=== PATIENT | female | born 1945 | race Caucasian/White ===

== ENCOUNTER 2019-04-04 15:48 | Observation (INO) | payer OTHER ==
[2019-04-04] MEDS ORDERED: NA CHLORIDE 0.9% 1,000 ML ONE (16:39)
[2019-04-04 17:06] LABS: Absolute Lymphocytes (CBC) 1.3 K/uL (0.7-4.9); Basophils % 0.8 % (0-1.3); Hematocrit 28.7 % (36.0-45.0); Lymphocytes % 19.5 % (15.3-44.8); MPV 8.8 fL (7.6-11.3)
[2019-04-04 17:17] LABS: Protime INR 2.87
[2019-04-04 17:29] LABS: Albumin 3.3 g/dL (3.4-5.0); Bilirubin Total 0.3 mg/dL (0.2-1.0); Protein, Total 5.7 g/dL (6.4-8.2)
--- NOTE | 2019-04-04 18:45 | ER ---
Nurse's Notes [facility] Name: Ruby Wright Age: 73 yrs Sex: Female : 1945 Arrival Date: 04/04/2019 Time: 15:50 Bed 30 Private MD: Moose Castillo Diagnosis: Gastrointestinal hemorrhage, unspecified Presentation: 04/04 16:10 Presenting complaint: Patient states: blood in stool since yesterday, denies pain, c/o iw nausea , currently on warfarin, increased dose 2 weeks ago. Transition of care: patient was not received from another setting of care. Onset of symptoms was April 04, 2019. Risk Assessment: Do you want to hurt yourself or someone else? Patient reports no desire to harm self or others. Initial Sepsis Screen: Does the patient meet any 2 criteria? No. Patient's initial sepsis screen is negative. Does the patient have a suspected source of infection? No. Patient's initial sepsis screen is negative. Care prior to arrival: None. 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 - Social history:: Smoking status: Patient/guardian denies using tobacco. - Ebola Screening: : Patient negative for fever greater than or equal to 101.5 degrees Fahrenheit, and additional compatible Ebola Virus Disease symptoms Patient denies exposure to infectious person Patient denies travel to an Ebola-affected area in the 21 days before illness onset No symptoms or risks identified at this time. Screenin:10 Abuse screen: Denies threats or abuse. Nutritional screening: No deficits noted. tr5 Tuberculosis screening: No symptoms or risk factors identified. Fall Risk None identified. Assessment: 16:40 General: Appears in no apparent distress. Behavior is calm, cooperative. tr5 16:40 Pain: Denies pain. Neuro: Level of Consciousness is awake, alert, obeys commands, tr5 Oriented to person, place, time, Hairspring [employer]i Inspector are equal bilaterally Moves all extremities. Cardiovascular: Heart tones present Capillary refill < 3 seconds Pulses are all present. Edema is absent. Respiratory: Airway is patent Respiratory effort is even, unlabored, Respiratory pattern is regular, symmetrical. GI: Reports bloody stool. : No signs and/or symptoms were reported regarding the genitourinary system. EENT: No signs and/or symptoms were reported regarding the EENT system. Derm: No signs and/or symptoms reported regarding the dermatologic system. Musculoskeletal: Capillary refill < 3 seconds, Range of motion: intact in all extremities. 18:00 Reassessment: Patient appears in no apparent distress at this time. Patient and/or tr5 family updated on plan of care and expected duration. Pain level reassessed. Patient is alert, oriented x 3, equal unlabored respirations, skin warm/dry/pink. 19:00 Reassessment: Patient appears in no apparent distress at this time. Patient and/or tr5 family updated on plan of care and expected duration. Pain level reassessed. Patient is alert, oriented x 3, equal unlabored respirations, skin warm/dry/pink. 20:00 Reassessment: Patient appears in no apparent distress at this time. Patient and/or tr5 family updated on plan of care and expected duration. Pain level reassessed. Patient is alert, oriented x 3, equal unlabored respirations, skin warm/dry/pink. Vital Signs: 16:14 BP 155 / 83; Pulse 73; Resp 16 S; Temp 98.5(O); Pulse Ox 97% on R/A; Weight 74.84 kg; iw Height 5 ft. 9 in. (175.26 cm); Pain 0/10; 16:40 BP 190 / 69; Pulse 59; Resp 16; Pulse Ox 99% on R/A; tr5 18:00 BP 190 / 69; Pulse 60; Resp 16; Pulse Ox 99% on R/A; tr5 19:00 BP 180 / 90; Pulse 63; Resp 15; Pulse Ox 99% on R/A; tr5 20:00 BP 172 / 78; Pulse 60; Resp 17; Pulse Ox 97% on R/A; tr5 16:14 Body Mass Index 24.37 (74.84 kg, 175.26 cm) iw ED Course: 15:50 Patient arrived in ED. as 15:51 Moose Castillo MD is Private Physician. as 15:59 Eddie Maddox, MICHAEL is Primary Nurse. tr5 16:01 Simon Becerra MD is Attending Physician. gs 16:10 Call light in reach. Side rails up X 1. Adult w/ patient. tr5 16:13 Triage completed. iw 16:14 Arm band placed on. iw 16:45 Inserted saline lock: 22 gauge in right antecubital area, using aseptic technique. tr5 16:50 Initial lab(s) drawn, by ky, sent to lab. tr5 18:43 Moose Castillo MD is Hospitalizing Provider. gs 19:00 Awaiting bed assignment. tr5 20:20 transfer transportation to receiving facility. tr5 20:47 No provider procedures requiring assistance completed. Patient admitted, IV remains in tr5 place. Administered Medications: 17:00 Drug: NS 0.9% 1000 ml Route: IV; Rate: 125 ml/hr; Site: right antecubital; tr5 20:50 Follow up: IV Status: Infusion continued upon transfer tr5 Outcome: 18:43 Decision to Hospitalize by Provider. gs 20:20 Admitted to Med/surg accompanied by tech, via wheelchair, with chart, Report called to tr5 Viral RODRIGUEZ 20:20 Condition: stable 20:20 Instructed on the need for admit. 21:09 Patient left the ED. tr5 Signatures: Oksana Do Irene, RN RN Simon Becerra MD MD Eddie Maddox RN RN tr5 Corrections: (The following items were deleted from the chart) 18:16 17:00 General: Appears tr5 tr5
--- NOTE | 2019-04-04 18:45 | EDPHYS ---
Physician Documentation [facility] Name: Ruby Wright Age: 73 yrs Sex: Female : 1945 Arrival Date: 04/04/2019 Time: 15:50 Bed 30 Private MD: Moose Castillo ED Physician Simon Becerra HPI: 04/04 18:22 This 73 yrs old Female presents to ER via Ambulatory with complaints of gs Bloody Stools. 18:22 The patient presents to the emergency department with rectal bleeding, a small amount, gs dark red blood with bowel movement. Onset: The symptoms/episode began/occurred today. Abdominal pain: none is appreciated. Modifying factors: The symptoms are alleviated by nothing, the symptoms are aggravated by nothing. Associated signs and symptoms: Pertinent negatives: chest pain, constipation, dizziness at rest, dizziness when standing. Severity of symptoms: At their worst the symptoms were moderate in the emergency department the symptoms have improved mildly. The patient has experienced a previous episode, and the symptoms today are exactly the same. 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 - Social history:: Smoking status: Patient/guardian denies using tobacco. - Ebola Screening: : Patient negative for fever greater than or equal to 101.5 degrees Fahrenheit, and additional compatible Ebola Virus Disease symptoms Patient denies exposure to infectious person Patient denies travel to an Ebola-affected area in the 21 days before illness onset No symptoms or risks identified at this time. ROS: 18:22 All other systems are negative. gs Exam: 18:22 Head/Face: Normocephalic, atraumatic. Eyes: Pupils equal round and reactive to light, gs extra-ocular motions intact. Lids and lashes normal. Conjunctiva and sclera are non-icteric and not injected. Cornea within normal limits. Periorbital areas with no swelling, redness, or edema. ENT: Nares patent. No nasal discharge, no septal abnormalities noted. Tympanic membranes are normal and external auditory canals are clear. Oropharynx with no redness, swelling, or masses, exudates, or evidence of obstruction, uvula midline. Mucous membranes moist. Neck: Trachea midline, no thyromegaly or masses palpated, and no cervical lymphadenopathy. Supple, full range of motion without nuchal rigidity, or vertebral point tenderness. No Meningismus. Chest/axilla: Normal chest wall appearance and motion. Nontender with no deformity. No lesions are appreciated. Cardiovascular: Regular rate and rhythm with a normal S1 and S2. No gallops, murmurs, or rubs. Normal PMI, no JVD. No pulse deficits. Respiratory: Lungs have equal breath sounds bilaterally, clear to auscultation and percussion. No rales, rhonchi or wheezes noted. No increased work of breathing, no retractions or nasal flaring. Back: No spinal tenderness. No costovertebral tenderness. Full range of motion. Skin: Warm, dry with normal turgor. Normal color with no rashes, no lesions, and no evidence of cellulitis. MS/ Extremity: Pulses equal, no cyanosis. Neurovascular intact. Full, normal range of motion. Neuro: Awake and alert, GCS 15, oriented to person, place, time, and situation. Cranial nerves II-XII grossly intact. Motor strength 5/5 in all extremities. Sensory grossly intact. Cerebellar exam normal. Normal gait. 18:22 Constitutional: The patient appears alert, awake. 18:22 Abdomen/GI: Palpation: abdomen is soft and non-tender, in all quadrants, Rectal exam: Stool: 18:22 Abdomen/GI: Rectal exam: Stool: grossly bloody. gs Vital Signs: 16:14 BP 155 / 83; Pulse 73; Resp 16 S; Temp 98.5(O); Pulse Ox 97% on R/A; Weight 74.84 kg; iw Height 5 ft. 9 in. (175.26 cm); Pain 0/10; 16:40 BP 190 / 69; Pulse 59; Resp 16; Pulse Ox 99% on R/A; tr5 18:00 BP 190 / 69; Pulse 60; Resp 16; Pulse Ox 99% on R/A; tr5 19:00 BP 180 / 90; Pulse 63; Resp 15; Pulse Ox 99% on R/A; tr5 20:00 BP 172 / 78; Pulse 60; Resp 17; Pulse Ox 97% on R/A; tr5 16:14 Body Mass Index 24.37 (74.84 kg, 175.26 cm) iw MDM: 16:34 Patient medically screened. 18:22 Differential diagnosis: DIVERTICULOSIS, COAGULOPATHY. Data reviewed: vital signs, gs nurses notes. Counseling: I had a detailed discussion with the patient and/or guardian regarding: the historical points, exam findings, and any diagnostic results supporting the discharge/admit diagnosis, the need for further work-up and treatment in the hospital. Response to treatment: the patient's symptoms have markedly improved after treatment. ED course: DR NESS GOMEZ SAYS COMFORTABLE WITH NO GI COVERAGE. 04/04 16:35 Order name: CBC with Diff; Complete Time: 17:34 04/04 16:35 Order name: CMP; Complete Time: 17:34 04/04 16:35 Order name: PT-INR; Complete Time: 17:34 04/04 17:38 Order name: Type And Screen 04/04 19:07 Order name: Protime (+INR) EDOK 04/04 19:09 Order name: CBC with Automated Diff [facility] 04/04 19:09 Order name: Clear Liquid EDOK 04/04 19:09 Order name: CBC with Automated Diff EDOK 04/04 19:09 Order name: CBC with Automated Diff EDOK 04/04 19:09 Order name: CBC with Automated Diff EDMS Administered Medications: 17:00 Drug: NS 0.9% 1000 ml Route: IV; Rate: 125 ml/hr; Site: right antecubital; tr5 20:50 Follow up: IV Status: Infusion continued upon transfer tr5 Disposition: 04/04/19 18:43 Hospitalization ordered by Moose Castillo for Observation. Preliminary diagnosis is Gastrointestinal hemorrhage, unspecified. - Bed requested for Telemetry/MedSurg (observation). - Status is Observation. tr5 - Condition is Stable. - Problem is new. - Symptoms have improved. UTI on Admission? No Signatures: Dispatcher [employer] EDOK Emily Wilson RN RN mw Williams, Irene, RN RN Simon Becerra MD MD Eddie Maddox RN RN tr5 Corrections: (The following items were deleted from the chart) 18:44 18:22 Abdomen/GI: Palpation: abdomen is soft and non-tender, in all quadrants, Rectal gs exam: Stool: guaiac positive, gs 19:28 18:43 Hospitalization Ordered by Moose Castillo MD for Observation. Preliminary mw diagnosis is Gastrointestinal hemorrhage, unspecified. Bed requested for Telemetry/MedSurg (observation). Status is Observation. Condition is Stable. Problem is new. Symptoms have improved. UTI on Admission? No. gs 21:09 19:28 04/04/2019 18:43 Hospitalization Ordered by Moose Castillo MD for Observation. tr5 Preliminary diagnosis is Gastrointestinal hemorrhage, unspecified. Bed requested for Telemetry/MedSurg (observation). Status is Observation. Condition is Stable. Problem is new. Symptoms have improved. UTI on Admission? No. mw
[2019-04-04] MEDS: NA CHLORIDE 0.9% 1,000 ML IV SCH (19:00)
[2019-04-04 21:24] VITALS: BMI 23.1
[2019-04-04] MEDS ORDERED: PANTOPRAZOLE 40 MG INJ IVP ONE (22:27)
[2019-04-04] MEDS ORDERED: SODIUM CHLORIDE 0.9% 10ML INJ IV PRN (22:27)
[2019-04-04] MEDS ORDERED: TEMAZEPAM 15 MG CAP PO PRN (22:28)
[2019-04-04] MEDS ORDERED: CALCIUM CARBONATE CHEW 500MG TAB PO ONE (22:49)
[2019-04-05 01:51] LABS: Absolute Lymphocytes (CBC) 1.2 K/uL (0.7-4.9); Basophils % 0.7 % (0-1.3); Hematocrit 24.9 % (36.0-45.0); MPV 8.9 fL (7.6-11.3); RBC Red Blood Cell Count 3.06 M/uL (3.86-4.86)
[2019-04-05 03:14] VITALS: O2SAT 98
[2019-04-05 04:41] LABS: Urine Appearance CLEAR; Urine Bilirubin NEGATIVE (NEG); Urine Blood NEGATIVE (NEG); Urine Color YELLOW; Urine Glucose NEGATIVE (NEG); Urine Microscopic Reflex ORDER UMIC; Urine Protein NEGATIVE (NEG); Urine Urobilinogen 0.2 mg/dL (0.2-1.0)
[2019-04-05] MEDS: NA CHLORIDE 0.9% 1,000 ML IV SCH (05:00)
[2019-04-05 05:21] LABS: Urine Bacteria >50 /HPF (<20); Urine Culture Reflex Order REFLEXED; Urine RBC NONE SEEN /HPF (NONE SEEN)
[2019-04-05] MEDS ORDERED: cloNIDine HCl 0.1 MG TAB PO ONE (06:16)
[2019-04-05 07:10] LABS: RBC Red Blood Cell Count 3.16 M/uL (3.86-4.86)
[2019-04-05 07:11] LABS: Absolute Lymphocytes (CBC) 1.2 K/uL (0.7-4.9); Basophils % 1.1 % (0-1.3); Hematocrit 25.9 % (36.0-45.0); Lymphocytes % 21.2 % (15.3-44.8); MPV 9.4 fL (7.6-11.3)
[2019-04-05 07:12] LABS: Protime INR 2.71
[2019-04-05 07:28] LABS: Albumin 2.7 g/dL (3.4-5.0); Bilirubin Total 0.4 mg/dL (0.2-1.0); Potassium 4.2 mmol/L (3.5-5.1); Thyroid Stimulating Hormone 2.68 uIU/mL (0.360-3.740)
[2019-04-05] MEDS: METOPROLOL TAR 50 MG TAB PO SCH ×2 (08:12)
[2019-04-05] MEDS ORDERED: PANTOPRAZOLE 40 MG INJ IVP ONE (09:00)
[2019-04-05] MEDS ORDERED: CALCIUM CARBONATE CHEW 500MG TAB PO ONE ×3 (09:00→22:46)
[2019-04-05] MEDS ORDERED: METOPROLOL TAR 50 MG TAB PO SCH (09:00)
[2019-04-05] MEDS ORDERED: HYDROCORTISONE 10 MG TAB PO SCH (09:00)
[2019-04-05 12:12] LABS: Absolute Lymphocytes (CBC) 1.3 K/uL (0.7-4.9); Basophils % 1.3 % (0-1.3); Hematocrit 27.1 % (36.0-45.0); RBC Red Blood Cell Count 3.32 M/uL (3.86-4.86)
[2019-04-05 13:27] LABS: Protime INR 2.57
[2019-04-05 14:32] VITALS: BP 182/82; TEMP 98
--- NOTE | 2019-04-05 23:24 | HP ---
Date of Admission: 04/04/2019 Chief Complaint: Rectal bleeding. History Of Present Illness: Patient presented to the emergency room with the above outlined complain t. She stated this had started a little bit noticeable the day before. However, today it was more t here and she described it as dark, possibly fresh mixed with old blood. She had no other symptoms. Past History: Patient has had a history of rectal bleeding in the past couple of years ago, was felt it was secondary to Xarelto and she did require transfusions. Workup at that time was basically neg ative. Since that time, she was switched to Coumadin and then approximately a week to 10 days ago, h er INR was in the 1.55 range. She has had difficulty in balancing it in the past; however, recently it has been pretty stable. Patient also has a history of chronic renal insufficiency. She has been followed by [facility] in [place], but has been stable. She started with her anticoagulation about 4-5 years ago when she had a DVT and pelvic fracture. Long history of adrenal insufficiency, contro lled on hydrocortisone 10 mg 3 times a day stable dose Social History: Nonsmoker, nondrinker. Family History: Noncontributory. Physical Examination: General: Patient is an elderly female, in no acute distress. Vital Signs: Stable vital signs other than slightly elevated blood pressure. Head and Neck: Normocephalic. Pupils equally reactive to light and accommodation. Fundi negative. Trachea midline. Thyroid not palpable. ENT: Negative. Chest: Clear to P and A. Cardiovascular: PMI midclavicular line. Heart sounds normal. Peripheral pulses present and equal b ilaterally. Abdomen: No organomegaly. Bowel sounds present. Extremities: Good tone and movement bilaterally. Reflexes physiologic. Rectal: Deferred. Has been done in the ER. There was some blood congealed noted. Pelvic: Deferred. Impression: 1.Rectal bleeding, probably secondary to abnormal coagulation studies. 2.Hypertension, poor control. 3.Renal insufficiency, stable. 4.Adrenal insufficiency by history. Plan: Patient will be admitted, placed on IV fluids. Blood count will be monitor as well as her INR . Depending on stability and the blood counts, she may be able to be discharged within 24-48 hours. HR/MODL Voice ID: [id number]
[2019-04-06] MEDS ORDERED: LEVOTHYROXINE SOD 0.025 MG TAB PO SCH (06:30)
== END 2019-04-05 15:15 | disposition home or self-care (01) ==
LOC: ER 15:48 → ERHOLD 19:31 → 2ND 20:44
PROVIDERS: ADMIT Family Medicine; ATTEND Family Medicine
DX: K62.5 Hemorrhage of anus and rectum (principal); N28.9 Disorder of kidney and ureter, unspecified; E27.40 Unspecified adrenocortical insufficiency; I10 Essential (primary) hypertension
CPT/HCPCS: 96361; 87088; 85025 ×4; 87086; 36415; 86900; 86850; 85610 ×3; 86901; 85730; 84443; 87077; 87186; 80053 ×2; 97116; 97161; 96360; 99285; C9113 ×2; J7030; G0378 ×3; 81003; 81015

== ENCOUNTER 2019-04-25 13:12 | Observation (INO) | payer OTHER ==
[2019-04-25] MEDS ORDERED: NA CHLORIDE 0.9% 1,000 ML ONE ×2 (13:32→18:39)
[2019-04-25 14:10] LABS: Absolute Lymphocytes (CBC) 0.6 K/uL (0.7-4.9); Basophils % 0.3 % (0-1.3); Hematocrit 29.8 % (36.0-45.0); Lymphocytes % 7.3 % (15.3-44.8); RBC Red Blood Cell Count 3.68 M/uL (3.86-4.86)
[2019-04-25 14:21] LABS: Potassium 4.2 mmol/L (3.5-5.1)
[2019-04-25 17:34] LABS: Anisocytosis SLIGHT; Blood Morphology Comment NOTED (NOT SEEN); Platelet Estimate ADEQ; Urine White Blood Cell Casts OK
--- NOTE | 2019-04-25 18:15 | EDPHYS ---
Physician Documentation [facility] Name: Ruby Wright Age: 73 yrs Sex: Female : 1945 Arrival Date: 04/25/2019 Time: 13:14 Bed 6 Private MD: Moose Castillo ED Physician Simon Becerra HPI: 04/25 18:27 This 73 yrs old Female presents to ER via Wheelchair with complaints of gs Dehydration. 18:27 Onset: The symptoms/episode began/occurred yesterday. Severity of symptoms: At their gs worst the symptoms were moderate in the emergency department the symptoms are unchanged. The patient has experienced similar episodes in the past, a few times. 18:28 The patient has been recently seen by a physician: the patient's primary care provider, with similar presenting complaints. cr up from baseline hx ckd. 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 - Social history:: Smoking status: Patient/guardian denies using tobacco. - Ebola Screening: : No symptoms or risks identified at this time. ROS: 18:41 All other systems are negative. gs Exam: 18:41 Head/Face: Normocephalic, atraumatic. Eyes: Pupils equal round and reactive to light, gs extra-ocular motions intact. Lids and lashes normal. Conjunctiva and sclera are non-icteric and not injected. Cornea within normal limits. Periorbital areas with no swelling, redness, or edema. ENT: Nares patent. No nasal discharge, no septal abnormalities noted. Tympanic membranes are normal and external auditory canals are clear. Oropharynx with no redness, swelling, or masses, exudates, or evidence of obstruction, uvula midline. Mucous membranes moist. Neck: Trachea midline, no thyromegaly or masses palpated, and no cervical lymphadenopathy. Supple, full range of motion without nuchal rigidity, or vertebral point tenderness. No Meningismus. Chest/axilla: Normal chest wall appearance and motion. Nontender with no deformity. No lesions are appreciated. Cardiovascular: Regular rate and rhythm with a normal S1 and S2. No gallops, murmurs, or rubs. Normal PMI, no JVD. No pulse deficits. Respiratory: Lungs have equal breath sounds bilaterally, clear to auscultation and percussion. No rales, rhonchi or wheezes noted. No increased work of breathing, no retractions or nasal flaring. Abdomen/GI: Soft, non-tender, with normal bowel sounds. No distension or tympany. No guarding or rebound. No evidence of tenderness throughout. Back: No spinal tenderness. No costovertebral tenderness. Full range of motion. Skin: Warm, dry with normal turgor. Normal color with no rashes, no lesions, and no evidence of cellulitis. MS/ Extremity: Pulses equal, no cyanosis. Neurovascular intact. Full, normal range of motion. Neuro: Awake and alert, GCS 15, oriented to person, place, time, and situation. Cranial nerves II-XII grossly intact. Motor strength 5/5 in all extremities. Sensory grossly intact. Cerebellar exam normal. Normal gait. 18:41 Constitutional: The patient appears alert, awake. Vital Signs: 13:22 BP 164 / 92; Pulse 70; Resp 18 S; Temp 98.4(TE); Pulse Ox 100% on R/A; Weight 71.21 kg aa5 (R); Height 5 ft. 9 in. (175.26 cm) (R); Pain 0/10; 15:33 BP 194 / 74; Pulse 64; Resp 17; Pulse Ox 99% on R/A; tw2 16:31 BP 178 / 85; Pulse 63; Resp 17; Pulse Ox 98% on R/A; tw2 17:39 BP 166 / 81; Pulse 64; Resp 17; Pulse Ox 98% on R/A; tw2 18:48 BP 163 / 84; Pulse 78; Resp 18; Pulse Ox 98% on R/A; mg2 19:55 BP 170 / 88; Pulse 70; Resp 18; Temp 98; Pulse Ox 98% on R/A; Pain 0/10; mg2 13:22 Body Mass Index 23.18 (71.21 kg, 175.26 cm) aa5 MDM: 14:34 Patient medically screened. gs 18:41 Data reviewed: vital signs, nurses notes, lab test result(s). Response to treatment: gs the patient's symptoms have mildly improved after treatment, and as a result, I will admit patient. 04/25 13:30 Order name: CBC with Diff; Complete Time: 17:49 gs 04/25 13:30 Order name: Basic Metabolic Panel; Complete Time: 14:35 gs 04/25 16:05 Order name: BUN; Complete Time: 17:49 gs 04/25 16:05 Order name: Creatinine, Serum gs 04/25 17:30 Order name: Add On-Lab iw 04/25 17:35 Order name: CBC Smear Scan; Complete Time: 17:49 EDMS 04/25 17:37 Order name: Creatinine; Complete Time: 17:49 EDMS Administered Medications: 13:50 Drug: NS 0.9% 1000 ml Route: IV; Rate: 1 bolus; Site: right antecubital; mg2 18:30 Follow up: Response: No adverse reaction; IV Status: Completed infusion; IV Intake: mg2 1000ml 18:43 Drug: NS 0.9% 1000 ml Route: IV; Rate: 100 ml/hr; Site: left antecubital; mg2 19:55 Follow up: Response: No adverse reaction; IV Status: Infusion continued upon admission; mg2 IV Intake: 100ml Disposition: 04/25/19 18:14 Hospitalization ordered by China Soto for Observation. Preliminary diagnosis are Acute kidney failure, Hypertensive heart and chronic kidney disease without heart failure. - Bed requested for Telemetry/MedSurg (observation). - Status is Observation. mg2 - Condition is Stable. - Problem is an acute exacerbation. - Symptoms have improved. UTI on Admission? No Signatures: Dispatcher [employer] Kristin Trinh RN RN Blanca Reardon RN RN aa5 Afia Levine RN RN tw2 Simon Becerra MD MD Enrico Curry RN RN mg2 Corrections: (The following items were deleted from the chart) 19:14 18:14 Hospitalization Ordered by China Soto MD for Observation. Preliminary diagnosis dw is Acute kidney failure; Hypertensive heart and chronic kidney disease without heart failure. Bed requested for Telemetry/MedSurg (observation). Status is Observation. Condition is Stable. Problem is an acute exacerbation. Symptoms have improved. UTI on Admission? No. gs 20:16 19:14 04/25/2019 18:14 Hospitalization Ordered by China Soto MD for Observation. mg2 Preliminary diagnosis is Acute kidney failure; Hypertensive heart and chronic kidney disease without heart failure. Bed requested for Telemetry/MedSurg (observation). Status is Observation. Condition is Stable. Problem is an acute exacerbation. Symptoms have improved. UTI on Admission? No. dw
--- NOTE | 2019-04-25 18:15 | ER ---
Nurse's Notes [facility] Name: Ruby Wright Age: 73 yrs Sex: Female : 1945 Arrival Date: 04/25/2019 Time: 13:14 Bed 6 Private MD: Moose Castillo Diagnosis: Acute kidney failure;Hypertensive heart and chronic kidney disease without heart failure Presentation: 04/25 13:20 Presenting complaint: Patient states: "Dr. Castillo sent me here for some IV fluids". aa5 Pt's daughter states "her creatinine went up a whole point but she does have kidney issues". Transition of care: patient was not received from another setting of care. Onset of symptoms was April 2019. Risk Assessment: Do you want to hurt yourself or someone else? Patient reports no desire to harm self or others. Initial Sepsis Screen: Does the patient meet any 2 criteria? No. Patient's initial sepsis screen is negative. Does the patient have a suspected source of infection? No. Patient's initial sepsis screen is negative. Care prior to arrival: None. 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 - Social history:: Smoking status: Patient/guardian denies using tobacco. - Ebola Screening: : No symptoms or risks identified at this time. Screenin:54 Abuse screen: Denies threats or abuse. Denies injuries from another. Nutritional mg2 screening: No deficits noted. Tuberculosis screening: No symptoms or risk factors identified. Fall Risk IV access (20 points). Assessment: 13:53 General: Appears in no apparent distress. comfortable, Behavior is calm, cooperative. mg2 Pain: Denies pain. Neuro: Level of Consciousness is awake, alert, obeys commands, Oriented to person, place, time, situation. Cardiovascular: Capillary refill < 3 seconds Patient's skin is warm and dry. Respiratory: Airway is patent Respiratory effort is even, unlabored, Respiratory pattern is regular, symmetrical. GI: No signs and/or symptoms were reported involving the gastrointestinal system. : No signs and/or symptoms were reported regarding the genitourinary system. EENT: No signs and/or symptoms were reported regarding the EENT system. Derm: Skin is intact, is healthy with good turgor, Skin is pink, warm \\T\\ dry. normal. Musculoskeletal: Circulation, motion, and sensation intact. Capillary refill < 3 seconds. 15:33 Reassessment: Patient appears in no apparent distress at this time. No changes from tw2 previously documented assessment. Patient and/or family updated on plan of care and expected duration. Pain level reassessed. Patient is alert, oriented x 3, equal unlabored respirations, skin warm/dry/pink. 16:31 Reassessment: Patient appears in no apparent distress at this time. No changes from tw2 previously documented assessment. Patient and/or family updated on plan of care and expected duration. Pain level reassessed. Patient is alert, oriented x 3, equal unlabored respirations, skin warm/dry/pink. 17:39 Reassessment: Patient appears in no apparent distress at this time. No changes from tw2 previously documented assessment. Patient and/or family updated on plan of care and expected duration. Pain level reassessed. Patient is alert, oriented x 3, equal unlabored respirations, skin warm/dry/pink. 18:48 Reassessment: patient informed about the plan for hospitalization and she agreed. mg2 19:35 Reassessment: i phoned 4th floor to give report and said she will call me back. mg2 Vital Signs: 13:22 BP 164 / 92; Pulse 70; Resp 18 S; Temp 98.4(TE); Pulse Ox 100% on R/A; Weight 71.21 kg aa5 (R); Height 5 ft. 9 in. (175.26 cm) (R); Pain 0/10; 15:33 BP 194 / 74; Pulse 64; Resp 17; Pulse Ox 99% on R/A; tw2 16:31 BP 178 / 85; Pulse 63; Resp 17; Pulse Ox 98% on R/A; tw2 17:39 BP 166 / 81; Pulse 64; Resp 17; Pulse Ox 98% on R/A; tw2 18:48 BP 163 / 84; Pulse 78; Resp 18; Pulse Ox 98% on R/A; mg2 19:55 BP 170 / 88; Pulse 70; Resp 18; Temp 98; Pulse Ox 98% on R/A; Pain 0/10; mg2 13:22 Body Mass Index 23.18 (71.21 kg, 175.26 cm) aa5 ED Course: 13:14 Patient arrived in ED. mr 13:15 Moose Castillo MD is Private Physician. mr 13:20 Arm band placed on. aa5 13:21 Triage completed. aa5 13:25 Enrico Curry RN is Primary Nurse. mg2 13:29 Simon Becerra MD is Attending Physician. gs 13:54 Patient has correct armband on for positive identification. Pulse ox on. NIBP on. Door mg2 closed. Warm blanket given. 13:54 No provider procedures requiring assistance completed. Inserted saline lock: 22 gauge mg2 in left antecubital area, using aseptic technique. Blood collected. by TERRENCE Lockhart. 18:13 China Soto MD is Hospitalizing Provider. gs 19:35 Patient admitted, IV remains in place. mg2 Administered Medications: 13:50 Drug: NS 0.9% 1000 ml Route: IV; Rate: 1 bolus; Site: right antecubital; mg2 18:30 Follow up: Response: No adverse reaction; IV Status: Completed infusion; IV Intake: mg2 1000ml 18:43 Drug: NS 0.9% 1000 ml Route: IV; Rate: 100 ml/hr; Site: left antecubital; mg2 19:55 Follow up: Response: No adverse reaction; IV Status: Infusion continued upon admission; mg2 IV Intake: 100ml Intake: 18:30 IV: 1000ml; Total: 1000ml. mg2 19:55 IV: 100ml; Total: 1100ml. mg2 Outcome: 18:14 Decision to Hospitalize by Provider. gs 19:56 Admitted to Tele accompanied by tech, via wheelchair, room 405, with chart, Report mg2 called to MICHAEL Odell 19:56 Condition: stable 19:56 Instructed on the need for admit, Demonstrated understanding of instructions. 20:16 Patient left the ED. mg2 Signatures: America Martinez AlexysBlanca, RN RN aa5 Afia Levine RN RN tw2 Simon Becerra MD MD Enrico Curry RN RN mg2
--- NOTE | 2019-04-25 20:23 | P.HP ---
Certification for Inpatient Patient admitted to: Observation With expected LOS: <2 Midnights Patient will require the following post-hospital care: None Practitioner: I am a practitioner with admitting privileges, knowledge of patient current condition, hospital course, and medical plan of care. Services: Services provided to patient in accordance with Admission requirements found in Title 42 Section 412.3 of the Code of Federal Regulations Patient History Date of Service: 04/26/19 Reason for admission: Elevated creatinine History of Present Illness: 73-year-old woman with a history of chronic kidney disease stage 4, gastric cancer, status post gastric resection, hypertension was referred to the emergency department due to increase in her serum creatinine checked in her doctor's office. Patient's serum creatinine has risen from 2.7 in October 2018, to 4.9 yesterday. Patient reports decreased oral intake from on anorexia. She also reports indigestion and chronic diarrhea from gastric resection. She has a history of adrenal insufficiency and she is on chronic steroid therapy. She stopped taking Lasix for peripheral edema about 6 months ago. In the ED, her serum creatinine measured was 4.35. Potassium level was normal. Patient is placed under observation for IV hydration for acute on chronic kidney disease. Allergies No Known Drug Allergies Allergy (Verified 01/14/15 17:37) Unknown Home Medications: Hydrocortisone [Cortef*] 30 mg PO DAILY 04/04/19 Levothyroxine [Synthroid] 25 mcg PO [id number] 04/04/19 Metoprolol Tartrate [Lopressor] 25 mg PO BID 04/04/19 Pantoprazole Sodium [Protonix] 40 mg PO DAILY #30 tablet. 04/05/19 Warfarin Sodium 3 mg PO 1700 04/25/19 - Past Medical/Surgical History Diabetic: No -: hypertension -: renal insufficiency -: stomach cancer -: hypothyroid -: gi bleed september 2014 from Xarelto -: left arm dvt 2006 -: old dvt right leg (unknown) -: seizure - Pressure on adrenal gland -: removal of the stomach 2006 (gastrectomy) -: cranial surgery 2006 -: removal of adrenal gland 2006 (adrenalectomy) - Family History Mother -: Hypertension Father -: Hypertension Sister -: Hypertension - Social History Alcohol use: No CD- Drugs: No Caffeine use: No Review of Systems Other: General: No fever, no malaise, no unintentional weight loss. Eyes: No eye discharge, Respiratory: No cough, no shortness of breath. CVS: No chest pain, no palpitation, no lightheadedness. GI: No abdominal pain, no nausea no vomit, no constipation. Genitourinary: No dysuria, no urinary frequency, no incontinence, no hematuria. Daughter reports patient has decreased urine output. Musculoskeletal: No joint pains, or joint swelling, no gait instability. Neurology: No headache, no asymmetric, weakness, no problem with swallowing. Except as documented, all other systems reviewed and negative. Physical Examination - Physical Exam General: Alert, In no apparent distress, Oriented x3 HEENT: Normocephalic, PERRLA, Mucous membr. moist/pink Neck: Supple, JVD not distended, No Thyromegaly Respiratory: Clear to auscultation bilaterally, Normal air movement Cardiovascular: No edema, Normal pulses, Regular rate/rhythm, Normal S1 S2, No murmurs Capillary refill: <2 Seconds Gastrointestinal: Normal bowel sounds, Soft and benign, Non-distended, No tenderness Musculoskeletal: No swelling, No erythema Integumentary: No rashes, No erythema Neurological: Normal speech, Normal strength at 5/5 x4 extr, Cranial nerves 3- 12 intact - Studies Laboratory Data (last 24 hrs) 04/25/19 16:30: BUN 73 H, Creatinine 4.35 H 04/25/19 13:50: Sodium 135 L, Potassium 4.2, BUN 77 H, Creatinine 4.73 H, Glucose 116 H 04/25/19 13:50: WBC 8.4 D, Hgb 9.6 L, Hct 29.8 L, Plt Count 221 D Assessment and Plan - Problems (Diagnosis) (1) Acute worsening of stage 4 chronic kidney disease Current Visit: Yes Status: Acute (2) Chronic diarrhea Current Visit: Yes Status: Chronic (3) Chronic anemia Current Visit: Yes Status: Chronic (4) Chronic deep vein thrombosis (DVT) of both lower extremities Onset Date: 02/29/16 Current Visit: No Status: Chronic Qualifiers: Affected thrombotic vein of extremity: unspecified vein of extremity Qualified Code(s): I82.503 - Chronic embolism and thrombosis of unspecified deep veins of lower extremity, bilateral - Plan Place patient under observation IV hydration with normal saline Monitor renal panel for improvement in serum creatinine. Check FeNa. Renal ultrasound Nephrology consult Continue warfarin for history of DVT. Check and monitor PT/INR. Continue home antihypertensives Continue hydrocortisone for adrenal insufficiency Encouraged oral rehydration. - Advance Directives Does patient have a Living Will: No Does patient have a Durable POA for Healthcare: Yes
[2019-04-25] MEDS: NA CHLORIDE 0.9% 1,000 ML IV SCH (21:03)
[2019-04-25] MEDS ORDERED: ACETAMINOPHEN 500 MG TAB PO PRN (21:03)
[2019-04-25] MEDS ORDERED: ONDANSETRON 4 MG/2 ML VIAL IV PRN (21:03)
[2019-04-26 05:40] LABS: Absolute Lymphocytes (CBC) 1.1 K/uL (0.7-4.9); Basophils % 0.8 % (0-1.3); MPV 8.8 fL (7.6-11.3)
[2019-04-26 06:02] LABS: Albumin 2.7 g/dL (3.4-5.0); Bilirubin Total 0.3 mg/dL (0.2-1.0); Magnesium 2.2 mg/dL (1.8-2.4); Phosphorus 3.9 mg/dL (2.5-4.9); Potassium 3.6 mmol/L (3.5-5.1)
[2019-04-26] MEDS: NA CHLORIDE 0.9% 1,000 ML IV SCH ×2 (06:15→17:15)
[2019-04-26 06:53] LABS: Protime INR 2.38
[2019-04-26] MEDS: PANTOPRAZOLE 40MG TABLET PO SCH (08:28)
[2019-04-26] MEDS: METOPROLOL TAR 50 MG TAB PO SCH ×2 (08:30→21:00)
[2019-04-26] MEDS ORDERED: ENOXAPARIN 30 MG/0.3 ML SQ SCH (09:00)
[2019-04-26] MEDS: HYDROCORTISONE 10 MG TAB PO SCH (10:14)
[2019-04-26 11:33] LABS: Hematocrit 26.2 % (36.0-45.0)
--- NOTE | 2019-04-26 14:35 | P.CNS ---
Date of Consult: 04/26/19 Reason for Consult: HUEY/ CKD IV Requesting Physician: China Soto Chief Complaint: Elevated creatinine History of Present Illness: 73-year-old woman with a history of chronic kidney disease stage 4, gastric cancer, status post gastric resection, hypertension was referred to the emergency department due to increase in her serum creatinine checked in her doctor's office. Patient's serum creatinine has risen from 2.7 in October 2018, to 4.9 yesterday. Patient reports decreased oral intake from on anorexia. She also reports indigestion and chronic diarrhea from gastric resection. She has a history of adrenal insufficiency and she is on chronic steroid therapy. She stopped taking Lasix for peripheral edema about 6 months ago. In the ED, her serum creatinine measured was 4.35. Potassium level was normal. Patient is placed under observation for IV hydration for acute on chronic kidney disease. 18:27 This 73 yrs old Female presents to ER via Wheelchair with complaints of gs Dehydration. 18:27 Onset: The symptoms/episode began/occurred yesterday. Severity of symptoms : At their gs worst the symptoms were moderate in the emergency department the symptoms are unchanged. The patient has experienced similar episodes in the past, a few times. 18:28 The patient has been recently seen by a physician: the patient's primary care provider, with similar presenting complaints. cr up from baseline hx ckd Allergies No Known Drug Allergies Allergy (Verified 01/14/15 17:37) Unknown Home medications list reviewed: Yes Home Medications: Hydrocortisone [Cortef*] 30 mg PO DAILY 04/04/19 Levothyroxine [Synthroid] 25 mcg PO [id number] 04/04/19 Metoprolol Tartrate [Lopressor] 25 mg PO BID 04/04/19 Pantoprazole Sodium [Protonix] 40 mg PO DAILY #30 tablet. 04/05/19 Warfarin Sodium 3 mg PO 1700 04/25/19 - Past Medical/Surgical History Diabetic: No -: hypertension -: renal insufficiency -: stomach cancer -: hypothyroid -: gi bleed september 2014 from Xarelto -: left arm dvt 2006 -: old dvt right leg (unknown) -: seizure - Pressure on adrenal gland -: removal of the stomach 2006 (gastrectomy) -: cranial surgery 2006 -: removal of adrenal gland 2006 (adrenalectomy) - Family History Mother Medical History: Hypertension Father Medical History: Hypertension Sister Medical History: Hypertension - Social History Smoking Status: Never smoker Alcohol use: No CD- Drugs: No Caffeine use: No Place of Residence: Home Review of Systems 10-point ROS is otherwise unremarkable General: Malaise Cardiovascular: Edema Neurological: Weakness Physical Examination Temp Pulse Resp BP Pulse Ox 97.7 F 56 18 164/72 H 98 04/26/19 12:00 04/26/19 12:00 04/26/19 12:00 04/26/19 12:00 04/26/19 12:00 General: In no apparent distress, Oriented x3, Cooperative HEENT: Atraumatic Neck: Supple Respiratory: Clear to auscultation bilaterally Cardiovascular: Regular rate/rhythm, Edema Gastrointestinal: Soft and benign, Non-distended Musculoskeletal: No clubbing, No contractures Integumentary: No rashes, No cyanosis Neurological: Normal speech Laboratory Data (last 24 hrs) 04/25/19 16:30: BUN 73 H, Creatinine 4.35 H 04/25/19 13:50: WBC 8.4 D, Hgb 9.6 L, Hct 29.8 L, Plt Count 221 D Imagings Data: EXAM DESCRIPTION: US - Renal Ultrasound-Complete - 04/26/2019 2:25 pm CLINICAL HISTORY: Acute and chronic renal disease COMPARISON: 2014 FINDINGS: The right kidney measures 9 cm with an increased echotexture. The left kidney measures 8 cm with an increased echotexture. Cortical thinning bilaterally Hydronephrosis is not seen. No gross abnormality of bladder is seen IMPRESSION: Increased renal echotexture consistent with parenchymal disease Conclusions/Impression: A/ HUEY in the setting of hypovolemia. Hyponatremia. Hypocalcemia. HTN with CKD. Anemia in chronic illness. Moderate malnutrition. Adrenal Insufficiency. P/ Continue current POC and Medications. Continue IVF. Give Epo. Start Vitamin D3. Check Hepatitis labs. Encourage nutrition. No NSAIDs. AM labs. Daily weight. Thank you kindly for the consultation. The case was discussed at length with the patient and his daughter.
[2019-04-26] MEDS ORDERED: HYDRALAZINE HCL 20 MG/ML VIAL IV PRN (16:27)
--- NOTE | 2019-04-26 17:05 | PN ---
Date of Progress Note: 04/26/2019 Subjective: Patient is seen and examined. Chart reviewed and case discussed with RN. No family at the bedside. Treatment plan explained and all questions answered. Medications: List reviewed. Code Status: Full. Physical Examination: Vital Signs: Temperature 97, heart rate 69, blood pressure 176/83, respirations 20, O2 96% on room air. General: Awake, alert, oriented x3. Elderly female, not in any acute distress. CV: S1, S2. Peripheral pulses present. Respiratory: Moving air well bilaterally. No wheezing or stridor. No use of accessory muscles. Gastrointestinal: Abdomen is soft, nontender, nondistended. Positive bowel sounds. Extremities: No clubbing, cyanosis. Patient does have pedal edema. Neurologic: Cranial nerves 2 through 12 intact grossly. No focal neurological deficit. Speech is normal. Laboratory Data: Sodium 142, potassium 3.6, chloride 112, CO2 of 22, BUN 69, creatinine 3.9, glucose 82, calcium 7.6, phosphorus 3.9, magnesium 2.2. WBC 6.1 , H and H 7.8 and 24, platelets 178, H and H 8.3 and 26.2. Urine random sodium is 74. Urine creatinine is also 74. Assessment And Plan: 73-year-old female with; 1. Acute on chronic kidney disease, stage 4. Creatinine is improving with IV fluids. We will continue to monitor. Nephrology on board. 2. Chronic diarrhea. Continue supportive treatment. 3. Anemia of chronic disease. We will monitor H and H. Patient has dropped to 7.8, repeat HH 8.3. Transfuse for hemoglobin less than 7. 4. Chronic deep venous thrombosis of both lower extremities. Patient is on anticoagulation. INR is 2.38. We will resume Coumadin today and monitor INR. 5. Gastroesophageal reflux disease. Continue PPI. 6. Hypothyroidism. We will continue Synthroid. 7. Adrenal insufficiency. We will continue steroids. 8. Deep vein thrombosis prophylaxis, addressed. Disposition: Likely discharge in the next 48 to 72 hours depending on clinical response. /MARINE Voice ID: [id number] Report ID: [id number] ASIA
[2019-04-26] MEDS: WARFARIN SODIUM 3 MG TAB PO SCH (17:21)
[2019-04-27] MEDS: NA CHLORIDE 0.9% 1,000 ML IV SCH (03:45)
[2019-04-27 05:42] LABS: Absolute Lymphocytes (CBC) 1.2 K/uL (0.7-4.9); Basophils % 0.5 % (0-1.3); Hematocrit 23.8 % (36.0-45.0); Lymphocytes % 18.9 % (15.3-44.8); MPV 8.9 fL (7.6-11.3); RBC Red Blood Cell Count 2.97 M/uL (3.86-4.86)
[2019-04-27] MEDS: LEVOTHYROXINE SOD 0.125 MG TAB PO SCH (06:00)
[2019-04-27] MEDS ORDERED: LEVOTHYROXINE SOD 0.025 MG TAB ONE (06:20)
[2019-04-27 06:34] LABS: ALT/SGPT 13 U/L (12-78); AST/SGOT 14 U/L (15-37); Albumin 2.6 g/dL (3.4-5.0); Alkaline Phosphatase 49 U/L (45-117); BUN Blood Urea Nitrogen 56 mg/dL (7-18); Bicarbonate 20 mmol/L (21-32); Bilirubin Total 0.4 mg/dL (0.2-1.0); Ferritin 16.8 ng/mL (8-388); Folic Acid, (Folate) > 20.0 ng/mL (3.1-17.5); Glucose Level 78 mg/dL (74-106); Phosphorus 3.4 mg/dL (2.5-4.9); Potassium 3.5 mmol/L (3.5-5.1); Protein, Total 4.8 g/dL (6.4-8.2); Sodium Level 145 mmol/L (136-145); Transferrin 173 mg/dL (200-360); Uric Acid 8.2 mg/dL (2.6-6.0)
[2019-04-27] MEDS: PANTOPRAZOLE 40MG TABLET PO SCH (08:23)
[2019-04-27] MEDS: VITAMIN D 5,000 UNIT CAP PO SCH (08:24)
[2019-04-27] MEDS: METOPROLOL TAR 50 MG TAB PO SCH ×2 (08:24→20:42)
[2019-04-27] MEDS: HYDROCORTISONE 10 MG TAB PO SCH (08:26)
[2019-04-27] MEDS ORDERED: EPOETIN ALFA-EPBX 10,000 UNIT/ML VIAL SQ ONE (09:00)
[2019-04-27] MEDS ORDERED: EPOETIN ALFA-EPBX 10,000 UNIT/ML VIAL SQ SCH (09:00)
[2019-04-27] MEDS ORDERED: CYANOCOBALAMIN 1000MCG/ML INJ SQ ONE (12:24)
--- NOTE | 2019-04-27 12:32 | P.PN ---
Date of Service: 04/27/19 Vital Signs Temp Pulse Resp BP Pulse Ox 97.4 F 65 18 143/66 H 98 04/27/19 08:00 04/27/19 09:35 04/27/19 08:00 04/27/19 09:35 04/27/19 08:00 Medications Acetaminophen (Tylenol -Extra Strength) 500 mg PO Q4HP PRN PRN Reason: Pain scale 2-4 (Mild) Stop: 05/25/19 21:04 Calcitriol (Rocaltrol) 0.5 mcg PO DAILY [facility] Stop: 05/28/19 09:01 Cholecalciferol (Vitamin D 5,000 Iu Cap) 5,000 unit PO DAILY [facility] Stop: 05/27/19 09:01 Last Admin: 04/27/19 08:24 Dose: 5,000 unit Cholecalciferol (Vitamin D 5,000 Iu Cap) 5,000 unit PO DAILY [facility] Stop: 05/28/19 09:01 Cyanocobalamin (B12 Injection) 1,000 mcg SQ 1X ONE Stop: 04/27/19 12:25 Hydralazine HCl (Apresoline) 10 mg IV Q6HP PRN PRN Reason: Titrate to SBP (MUST DEFINE) Stop: 05/26/19 16:28 Last Admin: 04/26/19 17:15 Dose: 10 mg Hydrocortisone (Cortef) 30 mg PO DAILY [facility] Stop: 05/26/19 09:01 Last Admin: 04/27/19 08:26 Dose: 30 mg Sodium Chloride (Sodium Chloride 0.45%) 1,000 mls @ 100 mls/hr IV .Q10H [facility] Stop: 05/27/19 13:01 Levothyroxine Sodium (Synthroid) 0.025 mg PO [id number] JUAN Stop: 05/27/19 06:01 Last Admin: 04/27/19 06:00 Dose: Not Given Metoprolol Tartrate (Lopressor) 25 mg PO BID [facility] Stop: 05/26/19 09:01 Last Admin: 04/27/19 08:24 Dose: 50 mg Ondansetron HCl (Zofran) 4 mg IV Q4H PRN PRN Reason: NAUSEA / VOMITING Stop: 05/25/19 21:04 Pantoprazole Sodium (Protonix Tab) 40 mg PO DAILY [facility]; Protocol Stop: 05/26/19 09:01 Last Admin: 04/27/19 08:23 Dose: 40 mg Potassium Chloride (Klor-Con 10 Meq Tab) 20 meq PO Q4H [facility] Stop: 04/27/19 17:01 Sodium Bicarbonate (Sodium Bicarb 325 Mg) 325 mg PO BID [facility] Stop: 05/27/19 13:01 Sodium Chloride (Normal Saline Flush) 10 ml IV BID [facility] Stop: 05/25/19 21:04 Last Admin: 04/27/19 08:30 Dose: Not Given Warfarin Sodium (Coumadin) 3 mg PO 1700 [facility] Stop: 05/26/19 17:01 Last Admin: 04/26/19 17:21 Dose: 3 mg Assessment/ Plan: Nephrology Doing well. CPS stable without CP or SOB. No acute events overnight. Vitals, medications, blood work and imaging reviewed in the chart. General: In no apparent distress, Oriented x3, Cooperative HEENT: Atraumatic Neck: Supple Respiratory: Clear to auscultation bilaterally Cardiovascular: Regular rate/rhythm, Edema Gastrointestinal: Soft and benign, Non-distended Musculoskeletal: No clubbing, No contractures Integumentary: No rashes, No cyanosis Neurological: Normal speech Laboratory Data (last 24 hrs) 04/25/19 16:30: BUN 73 H, Creatinine 4.35 H 04/25/19 13:50: WBC 8.4 D, Hgb 9.6 L, Hct 29.8 L, Plt Count 221 D Imagings Data: EXAM DESCRIPTION: US - Renal Ultrasound-Complete - 04/26/2019 2:25 pm CLINICAL HISTORY: Acute and chronic renal disease COMPARISON: 2014 FINDINGS: The right kidney measures 9 cm with an increased echotexture. The left kidney measures 8 cm with an increased echotexture. Cortical thinning bilaterally Hydronephrosis is not seen. No gross abnormality of bladder is seen IMPRESSION: Increased renal echotexture consistent with parenchymal disease Conclusions/Impression: A/ HUEY in the setting of hypovolemia. Hyponatremia. Hypokalemia. Acidosis. Hypocalcemia. HTN with CKD. IFG. A1C 5.8 Anemia in chronic illness. Iron deficiency. 6% B12 deficiency. 69 Moderate malnutrition. HUMBLE/ Secondary HyperPTH. PTH 380 Adrenal Insufficiency. P/ Continue current POC and Medications. Change IVF 1/2NS. Give IV iron. Give SC B12. Replete potassium. Start Bicarb. Start Calcitriol. No binders at this time. Start Doxazosin to improve BP control. Hepatitis labs pending. Encourage nutrition. No NSAIDs. AM labs. Daily weight. Case reviewed with Dr. Soto. Possible discharge tomorrow. Case reviewed with the patient and the daughter by phone.
--- NOTE | 2019-04-27 12:32 | PN ---
Date of Progress Note: 04/27/2019 Patient is seen and examined. Chart reviewed and case discussed with RN. Patient states she was unable to sleep last night. No other acute events overnight. Medications: List reviewed. Physical Examination: Vital Signs: Temperature 97.4, heart rate 59, blood pressure 176/88, respirations 18, O2 at 98% on room air. General: Awake, alert, oriented x3, not in any acute distress. CV: S1, S2. Regular rate and rhythm. Peripheral pulses present. Respiratory: Moving air well bilaterally. No wheezing or stridor. No use of accessory muscles. Gastrointestinal: Abdomen is soft, nontender, nondistended. Positive bowel sounds. Extremities: Patient does have chronic edema over lower extremities. Neuro: Cranial nerves 2 through 12 intact grossly. No focal neurological deficit. Speech is normal. Laboratory Data: Sodium 145, potassium 3.5, chloride 117, CO2 of 20, BUN [ QAMARKER],glucose 78. Hemoglobin A1c is 5.8%. Uric acid level is 8.2, calcium 7.3, phosphorus 3.4, iron 16, TIBC 242, transferrin 173, ferritin 16.8, albumin 2.6, vitamin B12 is 69, vitamin D 49.9, folate greater than 20. PTH is 379. WBC 6.6, H and H 8 and 23.8, platelets 184. Stool occult blood is negative. Assessment And Plan: A 73-year-old female with; 1. Acute on chronic kidney disease stage 4. Creatinine is continuing to improve, currently at 3.3. Appreciate Nephrology input. We will continue to monitor, likely secondary to dehydration. 2. Acute cystitis with out hematuria. Start on antibiotics follow up on culture results 3. 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 We will continue with supportive care. Continue IV fluids. Encourage p.o. intake. 4. Anemia of chronic disease. Patient does have iron deficiency. Hemoglobin is stable around 8. We will continue to monitor and transfuse for hemoglobin less than 7. 5. Chronic deep vein thrombosis of bilateral lower extremities. Continue Coumadin. Continue to monitor INR. 6. Gastroesophageal reflux disease without esophagitis. Continue PPI. 7. Hypothyroidism. Continue Synthroid. 8. Adrenal insufficiency. Continue steroids. 9. Secondary hyperparathyroidism: Phosphate binder 10. Deep venous thrombosis prophylaxis. The patient is on Coumadin. Plan: Likely discharge in the next 24 to 48 hours once cleared by Nephrology. SA/MODL Voice ID: [id number] Report ID: [id number] ASIA
[2019-04-27] MEDS: NACHLORIDE 0.45% 1,000 ML IV SCH (12:49)
[2019-04-27 12:55] LABS: Protime INR 2.26
[2019-04-27] MEDS ORDERED: SOD FERRIC GLUC COMPLX/SUCROSE 250 MG in NA CHLORIDE 0.9% 250 ML IV ONE (13:00)
[2019-04-27] MEDS: POTASSIUM CL SA 10 MEQ TAB PO SCH ×2 (13:00→17:00)
--- NOTE | 2019-04-27 13:06 | PN ---
Date of Progress Note: 04/27/2019 Patient is seen and examined. Chart reviewed and case discussed with RN. Patient states she was unable to sleep last night. No other acute events overnight. Medications: List reviewed. Physical Examination: Vital Signs: Temperature 97.4, heart rate 59, blood pressure 176/88, respirations 18, O2 at 98% on room air. General: Awake, alert, oriented x3, not in any acute distress. CV: S1, S2. Regular rate and rhythm. Peripheral pulses present. Respiratory: Moving air well bilaterally. No wheezing or stridor. No use of accessory muscles. Gastrointestinal: Abdomen is soft, nontender, nondistended. Positive bowel sounds. Extremities: Patient does have chronic edema over lower extremities. Neuro: Cranial nerves 2 through 12 intact grossly. No focal neurological deficit. Speech is normal. Laboratory Data: Sodium 145, potassium 3.5, chloride 117, CO2 of 20, glucose 78. Hemoglobin A1c is 5.8%. Uric acid level is 8.2, calcium 7.3, phosphorus 3.4, iron 16, TIBC 242, transferrin 173, ferritin 16.8, albumin 2.6, vitamin B12 is 69, vitamin D 49.9, folate greater than 20. PTH is 379. WBC 6.6, H and H 8 and 23.8, platelets 184. Stool occult blood is negative. Assessment And Plan: A 73-year-old female with; 1. Acute on chronic kidney disease stage 4. Creatinine is continuing to improve, currently at 3.3 Appreciate Nephrology input. We will continue to monitor, likely secondary to dehydration. 2. Acute cystitis without hematuria. Start on IV antibiotics. Follow up on urine cultures. 3. 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 We will continue with supportive care. Continue IV fluids. Encourage p.o. intake. 4. Anemia of chronic disease. Patient does have iron deficiency. Hemoglobin is stable around 8. We will continue to monitor and transfuse for hemoglobin less than 7. 5. Chronic deep vein thrombosis of bilateral lower extremities. Continue Coumadin. Continue to monitor INR. 6. Gastroesophageal reflux disease without esophagitis. Continue PPI. 7. Hypothyroidism. Continue Synthroid. 8. Adrenal insufficiency. Continue steroids. 9. Elevated uric acid level. 10. Deep venous thrombosis prophylaxis. The patient is on Coumadin. Plan: Likely discharge in the next 24 to 48 hours once cleared by Nephrology. SA/MODL Voice ID: [id number] Report ID: [id number] ASIA
[2019-04-27] MEDS: SODIUM BICARB 325 MG TAB PO SCH ×2 (14:04→20:42)
[2019-04-27 14:22] LABS: Urine Appearance CLEAR; Urine Bilirubin NEGATIVE (NEG); Urine Blood NEGATIVE (NEG); Urine Color YELLOW; Urine Glucose NEGATIVE (NEG); Urine Protein NEGATIVE (NEG); Urine Urobilinogen 0.2 mg/dL (0.2-1.0); Urine pH 5.5 (5.0-7.0)
[2019-04-27] MEDS ORDERED: DOXAZOSIN 2 MG TAB PO ONE (14:30)
[2019-04-27 14:35] LABS: Urine Bacteria >50 /HPF (<20); Urine Culture Reflex Order REFLEXED; Urine RBC NONE SEEN /HPF (NONE SEEN)
[2019-04-27] MEDS: WARFARIN SODIUM 3 MG TAB PO SCH (17:04)
[2019-04-28] MEDS: NACHLORIDE 0.45% 1,000 ML IV SCH ×2 (00:01→09:00)
[2019-04-28] MEDS ORDERED: LEVOTHYROXINE SOD 0.025 MG TAB ONE (05:21)
[2019-04-28] MEDS: LEVOTHYROXINE SOD 0.125 MG TAB PO SCH (05:23)
[2019-04-28 05:39] VITALS: BMI 23.4
[2019-04-28 06:12] LABS: Protime INR 2.81
[2019-04-28 06:14] LABS: Albumin 2.5 g/dL (3.4-5.0); Bilirubin Total 0.3 mg/dL (0.2-1.0); Potassium 3.8 mmol/L (3.5-5.1); Protein, Total 4.5 g/dL (6.4-8.2); Uric Acid 7.8 mg/dL (2.6-6.0)
[2019-04-28 07:34] LABS: Absolute Lymphocytes (CBC) 1.1 K/uL (0.7-4.9); Basophils % 0.5 % (0-1.3); Hematocrit 23.3 % (36.0-45.0); Lymphocytes % 15.8 % (15.3-44.8); MPV 9.2 fL (7.6-11.3); RBC Red Blood Cell Count 2.88 M/uL (3.86-4.86)
[2019-04-28] MEDS ORDERED: SOD FERRIC GLUC COMPLX/SUCROSE 250 MG in NA CHLORIDE 0.9% 250 ML IV ONE (08:30)
[2019-04-28] MEDS ORDERED: CALCITROL 0.25 MCG CAP PO SCH (09:00)
[2019-04-28] MEDS ORDERED: POTASSIUM 25 MEQ EFFERV TAB PO ONE (09:00)
[2019-04-28] MEDS ORDERED: CYANOCOBALAMIN 1000MCG/ML INJ SQ SCH (09:00)
[2019-04-28] MEDS ORDERED: VITAMIN D 5,000 UNIT CAP PO SCH (09:00)
[2019-04-28] MEDS: HYDROCORTISONE 10 MG TAB PO SCH (09:17)
[2019-04-28] MEDS: METOPROLOL TAR 50 MG TAB PO SCH (09:17)
[2019-04-28] MEDS: SODIUM BICARB 325 MG TAB PO SCH (09:18)
[2019-04-28] MEDS: PANTOPRAZOLE 40MG TABLET PO SCH (09:18)
[2019-04-28] MEDS: VITAMIN D 5,000 UNIT CAP PO SCH (09:18)
[2019-04-28 10:19] VITALS: O2SAT 96
[2019-04-28] MEDS ORDERED: CEFTRIAXONE/SWI 1gm 1 GM/10 ML SYR IVP SCH (11:00)
[2019-04-28 12:21] LABS: Hematocrit 25.2 % (36.0-45.0)
--- NOTE | 2019-04-28 13:18 | P.PN ---
Date of Service: 04/28/19 Vital Signs Temp Pulse Resp BP Pulse Ox 97.2 F 64 18 154/73 H 96 04/28/19 08:00 04/28/19 09:17 04/28/19 08:00 04/28/19 09:17 04/28/19 08:00 Medications Acetaminophen (Tylenol -Extra Strength) 500 mg PO Q4HP PRN PRN Reason: Pain scale 2-4 (Mild) Stop: 05/25/19 21:04 Calcitriol (Rocaltrol) 0.5 mcg PO DAILY [facility], [facility]1983 Stop: 05/28/19 09:01 Last Admin: 04/28/19 09:18 Dose: 0.5 mcg Cholecalciferol (Vitamin D 5,000 Iu Cap) 5,000 unit PO DAILY JUAN Stop: 05/27/19 09:01 Last Admin: 04/28/19 09:18 Dose: 5,000 unit Cyanocobalamin (B12 Injection) 1,000 mcg SQ DAILY JUAN Stop: 05/03/19 09:01 Last Admin: 04/28/19 09:18 Dose: 1,000 mcg Doxazosin Mesylate (Cardura) 2 mg PO BEDTIME JUAN Stop: 05/28/19 21:01 Last Admin: 04/27/19 23:56 Dose: 2 mg Ferrous Sulfate (Feosol) 325 mg PO DAILY [facility], [facility]1983 Stop: 05/29/19 09:01 Hydralazine HCl (Apresoline) 10 mg IV Q6HP PRN PRN Reason: Titrate to SBP (MUST DEFINE) Stop: 05/26/19 16:28 Last Admin: 04/26/19 17:15 Dose: 10 mg Hydrocortisone (Cortef) 30 mg PO DAILY [facility], [facility]1983 Stop: 05/26/19 09:01 Last Admin: 04/28/19 09:17 Dose: 30 mg Ceftriaxone Sodium/Sodium Chloride (Rocephin 1 Gm/10 Ml Swi Ivp) 1 gm in 10 mls @ 600 mls/hr IVP DAILY [facility], [facility]1983; Protocol Stop: 05/28/19 11:01 Last Admin: 04/28/19 11:02 Dose: 10 mls Levothyroxine Sodium (Synthroid) 0.025 mg PO [id number] [facility] Stop: 05/27/19 06:01 Last Admin: 04/28/19 05:23 Dose: Not Given Metoprolol Tartrate (Lopressor) 25 mg PO BID [facility] Stop: 05/26/19 09:01 Last Admin: 04/28/19 09:17 Dose: 25 mg Ondansetron HCl (Zofran) 4 mg IV Q4H PRN PRN Reason: NAUSEA / VOMITING Stop: 05/25/19 21:04 Pantoprazole Sodium (Protonix Tab) 40 mg PO DAILY [facility], [facility]; Protocol Stop: 05/26/19 09:01 Last Admin: 04/28/19 09:18 Dose: 40 mg Sodium Bicarbonate (Sodium Bicarb 325 Mg) 650 mg PO BID [facility], [facility]1983 Stop: 05/28/19 21:01 Sodium Chloride (Normal Saline Flush) 10 ml IV BID [facility] Stop: 05/25/19 21:04 Last Admin: 04/28/19 09:00 Dose: Not Given Warfarin Sodium (Coumadin) 3 mg PO 1700 [facility] Stop: 05/26/19 17:01 Last Admin: 04/27/19 17:04 Dose: 3 mg Assessment/ Plan: Nephrology Doing well. +Fatigue CPS stable without CP or SOB. No acute events overnight. Vitals, medications, blood work and imaging reviewed in the chart. General: In no apparent distress, Oriented x3, Cooperative HEENT: Atraumatic Neck: Supple Respiratory: Clear to auscultation bilaterally Cardiovascular: Regular rate/rhythm, Edema Gastrointestinal: Soft and benign, Non-distended Musculoskeletal: No clubbing, No contractures Integumentary: No rashes, No cyanosis Neurological: Normal speech Laboratory Data (last 24 hrs) 04/25/19 16:30: BUN 73 H, Creatinine 4.35 H 04/25/19 13:50: WBC 8.4 D, Hgb 9.6 L, Hct 29.8 L, Plt Count 221 D Imagings Data: EXAM DESCRIPTION: US - Renal Ultrasound-Complete - 04/26/2019 2:25 pm CLINICAL HISTORY: Acute and chronic renal disease COMPARISON: 2014 FINDINGS: The right kidney measures 9 cm with an increased echotexture. The left kidney measures 8 cm with an increased echotexture. Cortical thinning bilaterally Hydronephrosis is not seen. No gross abnormality of bladder is seen IMPRESSION: Increased renal echotexture consistent with parenchymal disease Conclusions/Impression: A/ HUEY in the setting of hypovolemia. Hyponatremia. Hypokalemia. Acidosis. Hypocalcemia. CKD V due to a hx of carboplatin tx for gastric cancer. HTN with CKD. IFG. A1C 5.8 Anemia in chronic illness. Iron deficiency. 6% B12 deficiency with suspected pernicious anemia. 69 Moderate malnutrition. HUMBLE/ Secondary HyperPTH. PTH 380 Adrenal Insufficiency. P/ Continue current POC and Medications. Discontinue IVF. Give IV iron and start oral iron. Give Procrit today. Consider outpt Procrit injections. Give SC B12 and continue B12 injections as an outpt. Replete potassium as needed. Increase Bicarb 650mg BID. Doxazosin 2mg qhs. Hepatitis labs pending. Encourage nutrition. No sugar diet. No NSAIDs. AM labs. Daily weight. Case reviewed with Dr. Soto. Possible discharge today. Case reviewed with the patient and the daughter by phone.
[2019-04-28] MEDS ORDERED: EPOETIN ALFA 20,000 UNIT/1 ML VIAL SQ ONE (13:30)
[2019-04-28 16:55] VITALS: BP 132/63; TEMP 97.5
[2019-04-28] MEDS ORDERED: SODIUM BICARB 325 MG TAB PO SCH (21:00)
[2019-04-28] MEDS ORDERED: DOXAZOSIN 2 MG TAB PO SCH (21:00)
--- NOTE | 2019-04-29 02:41 | DS ---
Date of Discharge: 04/28/2019 Direct Service Provider: Dr. Danielson with Nephrology. Admitting Diagnoses: 1.Acute on chronic kidney injury stage IV. 2.Chronic diarrhea. 3.Chronic anemia. 4.Deep vein thrombosis of both lower extremities. Discharge Diagnoses: 1.Acute on chronic kidney disease stage 4. 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 3.Anemia of chronic disease, stable. 4.Chronic deep vein thrombosis of bilateral lower extremity on Coumadin. 5.Gastroesophageal reflux disease without esophagitis. 6.Hypothyroidism on Synthroid. 7.Adrenal insufficiency on steroids. 8.Elevated uric acid level. 9.Moderate protein-calorie malnutrition. Hospital Course: Patient is a 73-year-old female with chronic medical conditions including kidney di sease, stage IV gastric cancer status post gastric resection, hypertension, comes in with worsening k idney function. She was dehydrated, found to be not eating and drinking well due to her history of g astric resection. Patient was found to have a creatinine level at 4.73. Her baseline is usually alex und 2. Patient was started on IV fluids. Nephrology was consulted. Patient's workup was also initi ated. She also had some drop in her hemoglobin. She continues to be very much iron deficient, likel y due to her anemia of chronic disease. She was also on Coumadin for her history of bilateral lower extremity DVTs. Patient had improvement with her kidney function with IV fluids. She was no longer dehydrated. She was able to eat most of her meals. Her renal ultrasound showed increased renal echo texture consistent with parenchymal disease. She was also found to have a UTI and was started on IV antibiotics. Patient's cultures to date are showing gram-negative rods, 4+. Patient was then cleare d for discharge from Nephrology standpoint to follow up with supervisor safety deposit in [place] and to follow up with primary care physician, Dr. Castillo in 2-3 days, return to ER for worsening condition, diet, re nal activity, fall precautions as tolerated. Physical Examination: General: Awake, alert, oriented x3. No acute distress, elderly female. CV: S1-S2. Respiratory: Moving air well bilaterally. Abdomen: Abdomen is soft, nontender, nondistended. Positive bowel sounds. Extremities: No clubbing or cyanosis. Lower extremities do have edema. Neurologic: Nonfocal. SA/MODL Voice ID: [id number] Report ID: [id number]
[2019-04-29] MEDS ORDERED: FERROUS SULFATE 325 MG TAB PO SCH (09:00)
[2019-05-01 04:54] LABS: HBsAG Nonreactive (Nonreactive)
== END 2019-04-28 16:42 | disposition home or self-care (01) ==
LOC: ER 13:12 → INTOOBSV 18:47 → ERHOLD 18:47 → 4TH 19:56
PROVIDERS: ADMIT Family Medicine; ATTEND Internal Medicine
DX: I12.9 Hypertensive chronic kidney disease with stage 1 through stage 4 chronic kidney disease, or unspecified chronic kidney disease (principal); N18.4 Chronic kidney disease, stage 4 (severe); N17.9 Acute kidney failure, unspecified; N30.00 Acute cystitis without hematuria; D63.1 Anemia in chronic kidney disease; K21.9 Gastro-esophageal reflux disease without esophagitis; E03.9 Hypothyroidism, unspecified; E27.40 Unspecified adrenocortical insufficiency; R19.7 Diarrhea, unspecified; Z90.3 Acquired absence of stomach [part of]; Z85.028 Personal history of other malignant neoplasm of stomach; E87.1 Hypo-osmolality and hyponatremia; E83.51 Hypocalcemia; I82.503 Chronic embolism and thrombosis of unspecified deep veins of lower extremity, bilateral; E44.0 Moderate protein-calorie malnutrition; Z68.23 Body mass index [BMI] 23.0-23.9, adult
CPT/HCPCS: 96361; 87088; 85025 ×4; 81001; 87086; 80048; 36415 ×3; 83735; 82274; 84100; 85610 ×3; 84300; 82565; 84520; 84550 ×2; 80069; 87077; 87186; 85018 ×2; 85014 ×2; 83036; 82570; 82728; 82746; 82607; 83540; 83970; 80053 ×3; 86704; 86317; 82306; 87340; 84466; 76770; 94760 ×5; 96360; 99285; J0360; J3420 ×2; J1650; Q4081; J2916 ×2; J0696; J0583; G0378 ×6; J7030 ×7

== ENCOUNTER 2021-04-05 13:57 | Emergency (ER) | payer OTHER ==
--- NOTE | 2021-04-05 15:50 | RAD REPORT ---
EXAM DESCRIPTION: RAD - Chest Single View - 04/05/2021 3:36 pm CLINICAL HISTORY: COUGH Chest pain. COMPARISON: Chest Pa And Lat (2 Views) dated 01/19/2017; Chest Single View dated 03/23/2016; Chest Sin gle View dated 02/26/2016; CHEST SINGLE VIEW dated 01/14/2015 FINDINGS: Portable technique limits examination quality. Right lung base haziness raises suspicion of a mild infiltrate/ pneumonia. The heart is normal in siz e. Right-sided venous catheter has tip in the SVC.Sclerotic appearance is seen in the region of the r ight mid humeral shaft presumably related to a healing subacute fracture.
[2021-04-05 15:52] LABS: Absolute Lymphocytes (CBC) 1.8 K/uL (0.7-4.9); Basophils % 0.9 % (0-1.3); Hematocrit 29.5 % (36.0-45.0); Lymphocytes % 16.3 % (15.3-44.8); MPV 9.3 fL (7.6-11.3); RBC Red Blood Cell Count 3.44 M/uL (3.86-4.86)
[2021-04-05 15:53] LABS: Protime INR 1.17
[2021-04-05 16:07] LABS: Bilirubin Direct 0.2 mg/dL (0-0.2); Bilirubin Total 0.6 mg/dL (0.2-1.0); Magnesium 2.2 mg/dL (1.8-2.4); Potassium 4.4 mmol/L (3.5-5.1); Protein, Total 5.5 g/dL (6.4-8.2); Troponin (Emerg Dept Use Only) 0.04 ng/mL (0.0-0.045)
[2021-04-05] MEDS ORDERED: NA CHLORIDE 0.9% 1,000 ML ONE (16:13)
[2021-04-05] MEDS ORDERED: VANCOMYCIN 1 GM/VIAL ONE (16:29)
[2021-04-05] MEDS ORDERED: FAMOTIDINE 20 MG/2 ML VIAL IV ONE (16:31)
[2021-04-05] MEDS ORDERED: ACETAMINOPHEN 325 MG TABLET ONE (16:31)
[2021-04-05] MEDS ORDERED: HYDROCORTISONE SUC 100 MG INJ ONE (16:31)
[2021-04-05] MEDS ORDERED: NA CHLORIDE 0.9% 250 ML ONE (16:32)
--- NOTE | 2021-04-05 16:34 | EDPHYS ---
Physician Documentation [facility] Name: Ruby Wright Age: 75 yrs Sex: Female : 1945 Arrival Date: 04/05/2021 Time: 14:02 Bed 15 Private MD: Sumeet Danielson; Moose Castillo ED Physician Jefry Dhillon HPI: 04/05 15:58 This 75 yrs old Female presents to ER via EMS with complaints of General alondra Weakness. 15:58 The patient presents with cellulitis of the left arm. Description: erythematous, hot, alondra swollen. Onset: The symptoms/episode began/occurred 3 day(s) ago. Possible cause(s): av fistula. Associated signs and symptoms: The patient has no apparent associated signs or symptoms. The patient or guardian complains of decreased range of motion. Context: The problem was sustained. Historical: - Allergies: 14:19 No Known Allergies; iw - Home Meds: 14:20 doxazosin oral [Active]; Lasix Oral [Active]; levothyroxine oral [Active]; Metoprolol iw Tartrate Oral [Active]; Warfarin Oral [Active]; - PMHx: 14:19 adrenal insufficiency; Cancer; ESRD; fluid retention; Hypertension; Hypothyroidism; iw stomach cancer; - Immunization history:: Client reports having NOT received the Covid vaccine. - Social history:: Smoking status: Patient denies any tobacco usage or history of. - Family history:: not pertinent. ROS: 15:58 Eyes: Negative for injury, pain, redness, and discharge, ENT: Negative for injury, alondra pain, and discharge, Neck: Negative for injury, pain, and swelling, Respiratory: Negative for shortness of breath, cough, wheezing, and pleuritic chest pain, Abdomen/GI: Negative for abdominal pain, nausea, vomiting, diarrhea, and constipation, Back: Negative for injury and pain, : Negative for injury, bleeding, discharge, and swelling, Skin: Negative for injury, rash, and discoloration, Neuro: Negative for headache, weakness, numbness, tingling, and seizure, Psych: Negative for depression, anxiety, suicide ideation, homicidal ideation, and hallucinations, Allergy/Immunology: Negative for hives, rash, and allergies, Endocrine: Negative for neck swelling, polydipsia, polyuria, polyphagia, and marked weight changes, Hematologic/Lymphatic: Negative for swollen nodes, abnormal bleeding, and unusual bruising. 15:58 Constitutional: Positive for body aches, chills, fever. 15:58 Cardiovascular: Positive for palpitations. 15:58 MS/extremity: Positive for decreased range of motion, pain, swelling, tenderness. Exam: 15:58 Constitutional: This is a well developed, well nourished patient who is awake, alert, alondra and in no acute distress. Head/Face: Normocephalic, atraumatic. Eyes: Pupils equal round and reactive to light, extra-ocular motions intact. Lids and lashes normal. Conjunctiva and sclera are non-icteric and not injected. Cornea within normal limits. Periorbital areas with no swelling, redness, or edema. ENT: Nares patent. No nasal discharge, no septal abnormalities noted. Tympanic membranes are normal and external auditory canals are clear. Oropharynx with no redness, swelling, or masses, exudates, or evidence of obstruction, uvula midline. Mucous membranes moist. Neck: Trachea midline, no thyromegaly or masses palpated, and no cervical lymphadenopathy. Supple, full range of motion without nuchal rigidity, or vertebral point tenderness. No Meningismus. Chest/axilla: Normal chest wall appearance and motion. Nontender with no deformity. No lesions are appreciated. Respiratory: Lungs have equal breath sounds bilaterally, clear to auscultation and percussion. No rales, rhonchi or wheezes noted. No increased work of breathing, no retractions or nasal flaring. Abdomen/GI: Soft, non-tender, with normal bowel sounds. No distension or tympany. No guarding or rebound. No evidence of tenderness throughout. Back: No spinal tenderness. No costovertebral tenderness. Full range of motion. Skin: Warm, dry with normal turgor. Normal color with no rashes, no lesions, and no evidence of cellulitis. Neuro: Awake and alert, GCS 15, oriented to person, place, time, and situation. Cranial nerves II-XII grossly intact. Motor strength 5/5 in all extremities. Sensory grossly intact. Cerebellar exam normal. Normal gait. Psych: Awake, alert, with orientation to person, place and time. Behavior, mood, and affect are within normal limits. 15:58 Cardiovascular: Rate: tachycardic, Rhythm: regular, Pulses: Pulses are 4+ in bilateral radial, brachial, femoral, popliteal, posterior tibial and and dorsalis pedis arteries.. Edema: 2+ edema to level of left upper arm, left elbow, left forearm and left wrist, JVD: is not appreciated. 16:04 ECG was reviewed by the Attending Physician. [facility] Vital Signs: 14:17 BP 131 / 74; Pulse 114; Resp 18 S; Temp 99.4(TE); Pulse Ox 95% on R/A; Weight 70.31 kg; iw Height 5 ft. 6 in. (167.64 cm); 16:42 BP 129 / 54; Pulse 115; Resp 20; Pulse Ox 100% ; kg 17:21 BP 108 / 57; Pulse 100; Resp 20; Pulse Ox 98% ; kg 14:17 Body Mass Index 25.02 (70.31 kg, 167.64 cm) iw MDM: 14:25 Patient medically screened. alondra 16:01 Differential diagnosis: cellulitis, dislocation, contusion, tendonitis. HEART Score: alondra History: Slightly Suspicious (0), ECG: Non specific repolarization disturbance / LBTB / PM (1), Age: > or = 65 years (2), Risk Factors: > or = 3 Risk factors for atherosclerotic disease (2), [Hypercholesterolemia] [Hypertension] [+ Family HX] [Obesity] Troponin: < or = 1 x Normal Limit (0). The patient was not given aspirin in the Emergency Department. The patient's deep vein thrombosis risk score was calculated as follows: Total Score: 0. This patient was found to be at low risk for a deep vein thrombosis by using the Well's assessment criteria. The patient's pulmonary embolism risk score was calculated as follows: Total Score: 0-2 points. This patient was found to be at low risk for a pulmonary embolism by using the Well's assessment criteria. ELDER Risk Score: 1 - patient's age is greater or equal to 65 years, 1 - Three or more CAD risk factors. Data reviewed: vital signs, nurses notes, EMS record, old medical records, lab test result(s), EKG, radiologic studies. Data interpreted: autocad: rate is 114 beats/min, rhythm is regular, Pulse oximetry: on room air is 95 %. Test interpretation: by ED physician or midlevel provider: ECG, plain radiologic studies. Counseling: I had a detailed discussion with the patient and/or guardian regarding: the historical points, exam findings, and any diagnostic results supporting the discharge/admit diagnosis, lab results, radiology results, the need to transfer to another facility, for higher level of care, [facility] does not immediately have the required specialist. 04/05 14:48 Order name: Basic Metabolic Panel; Complete Time: 16:28 [facility] 04/05 14:48 Order name: CBC with Diff; Complete Time: 16:28 [facility] 04/05 14:48 Order name: LFT's; Complete Time: 16:28 [facility] 04/05 14:48 Order name: Magnesium; Complete Time: 16:28 [facility] 04/05 14:48 Order name: NT PRO-BNP; Complete Time: 16:28 [facility] 04/05 14:48 Order name: PT-INR; Complete Time: 16:28 [facility] 04/05 14:48 Order name: Troponin (emerg Dept Use Only); Complete Time: 16:28 [facility] 04/05 14:48 Order name: XRAY Chest (1 view); Complete Time: 16:28 [facility] 04/05 14:48 Order name: Blood Culture Adult (2) [facility] 04/05 14:48 Order name: Urine Culture [facility] 04/05 14:48 Order name: Lactate; Complete Time: 16:28 [facility] 04/05 17:25 Order name: SARS-COV-2 RT PCR; Complete Time: 18:55 [facility] 04/05 14:48 Order name: EKG; Complete Time: 14:49 [facility] 04/05 14:48 Order name: Cardiac monitoring; Complete Time: 14:56 [facility] 04/05 14:48 Order name: EKG - Nurse/Tech; Complete Time: 14:56 [facility] 04/05 14:48 Order name: IV Saline Lock; Complete Time: 16:31 [facility] 04/05 14:48 Order name: Labs collected and sent; Complete Time: 16:31 [facility] 04/05 14:48 Order name: O2 Per Protocol; Complete Time: 16:31 [facility] 04/05 14:48 Order name: O2 Sat Monitoring; Complete Time: 16:32 [facility] 04/05 14:48 Order name: Urine Dipstick-Ancillary (obtain specimen) [facility] EC:04 Rate is 119 beats/min. Rhythm is regular. QRS [place] is Normal. TN interval is normal. alondra QRS interval is normal. QT interval is normal. No Q waves. T waves are Normal. No ST changes noted. Clinical impression: Sinus tachycardia and No evidence of ischemia. Interpreted by me. Reviewed by me. Administered Medications: 15:54 Drug: vancoMYCIN 1 grams Route: IVPB; Infused Over: 2 hrs; Site: right antecubital; kg 15:58 Drug: Pepcid (famotidine) 20 mg Route: IVP; Site: right antecubital; kg 17:23 Follow up: Response: No adverse reaction kg 15:59 Drug: Solu-CORTEF (hyrdoCORTISONE) 100 mg Route: IVP; Site: right antecubital; kg 17:22 Follow up: Response: No adverse reaction kg 16:02 Drug: NS 0.9% 1000 ml Route: IV; Rate: 100 ml/hr; Site: right antecubital; kg 16:30 Drug: Tylenol 650 mg Route: PO; kg 17:22 Follow up: Response: No adverse reaction kg 17:32 Drug: Unasyn (ampicillin-sulbactam) 3 grams Route: IVPB; Infused Over: 30 mins; Site: kg right antecubital; Disposition Summary: 04/05/21 16:33 Transfer Ordered Transfer Location: [facility] alondra Reason: Higher level of care alondra Condition: Stable alondra Problem: new alondra Symptoms: have improved alondra Accepting Physician: monica merlos md(04/05/21 19:10) [place] Diagnosis - Cellulitis and acute lymphangitis of other parts of limb - AV Fistula alondra - Fever, unspecified alondra - End stage renal disease - on HD alondra - Pneumonia, unspecified organism - right lower lobe alondra - Anemia, unspecified alondra Forms: - Medication Reconciliation Form alondra - SBAR form alondra Signatures: Dispatcher [employer] EDJefry Guzmán MD MD cha Williams, Irene, RN RN iw Maureen Boone RN RN kg Harriott, Oneka RN RN oh Corrections: (The following items were deleted from the chart) 16:22 14:49 CORONAVIRUS+.BRZ ordered. EDIA EDMS 16:50 16:33 monica merlos md, cha [facility] 19:10 16:50 monica merlos md, cha [place]
--- NOTE | 2021-04-05 16:34 | ER ---
Nurse's Notes [facility] Name: Ruby Wright Age: 75 yrs Sex: Female : 1945 Arrival Date: 04/05/2021 Time: 14:02 Bed 15 Private MD: Sumeet Danielson; Moose Castillo Diagnosis: Cellulitis and acute lymphangitis of other parts of limb-AV Fistula;Fever, unspecified;End stage renal disease-on HD;Pneumonia, unspecified organism-right lower lobe;Anemia, unspecified Presentation: 04/05 14:12 Chief complaint: Patient states: has had general weakness, recently had dialysis port iw put in her chest and had surgery on her fistula in left arm, it is now red and swollen. Coronavirus screen: At this time, the client does not indicate any symptoms associated with coronavirus-19. Ebola Screen: Patient negative for fever greater than or equal to 101.5 degrees Fahrenheit, and additional compatible Ebola Virus Disease symptoms Patient denies exposure to infectious person. Patient denies travel to an Ebola-affected area in the 21 days before illness onset. No symptoms or risks identified at this time. Risk Assessment: Do you want to hurt yourself or someone else? Patient reports no desire to harm self or others. 14:12 Method Of Arrival: EMS: [facility] iw 14:12 Acuity: ROBERT 3 iw 14:17 Initial Sepsis Screen: Does the patient meet any 2 criteria? HR > 90 bpm. No. Patient's iw initial sepsis screen is negative. Does the patient have a suspected source of infection?. Onset of symptoms was April 05, 2021. Triage Assessment: 14:20 General: Appears distressed, Behavior is calm, cooperative, appropriate for age, kg Reports weakness, decrease appetite, rash and redness to dialysis port site. 16:48 Pain: Denies pain. kg Historical: - Allergies: 14:19 No Known Allergies; iw - Home Meds: 14:20 doxazosin oral [Active]; Lasix Oral [Active]; levothyroxine oral [Active]; Metoprolol iw Tartrate Oral [Active]; Warfarin Oral [Active]; - PMHx: 14:19 adrenal insufficiency; Cancer; ESRD; fluid retention; Hypertension; Hypothyroidism; iw stomach cancer; - Immunization history:: Client reports having NOT received the Covid vaccine. - Social history:: Smoking status: Patient denies any tobacco usage or history of. - Family history:: not pertinent. Screenin:48 Abuse screen: Denies threats or abuse. Nutritional screening: No deficits noted. kg Tuberculosis screening: No symptoms or risk factors identified. Fall Risk None identified. Assessment: 14:20 General: Appears distressed, Behavior is calm, cooperative, appropriate for age, kg Reports fatigue for weakness, decrease appetite, rash to right sided dialysis port. Cardiovascular: No deficits noted. Derm: Rash noted that is red. Musculoskeletal: Reports weakness in body. 16:34 Reassessment: initiated transfer with [facility] , will call back. iw 16:56 Reassessment: faxed over clinicals and face sheet to [facility] , no rooms available at this time but will try to find a bed since pt had procedure at their facility . Vital Signs: 14:17 BP 131 / 74; Pulse 114; Resp 18 S; Temp 99.4(TE); Pulse Ox 95% on R/A; Weight 70.31 kg; iw Height 5 ft. 6 in. (167.64 cm); 16:42 BP 129 / 54; Pulse 115; Resp 20; Pulse Ox 100% ; kg 17:21 BP 108 / 57; Pulse 100; Resp 20; Pulse Ox 98% ; kg 14:17 Body Mass Index 25.02 (70.31 kg, 167.64 cm) iw ED Course: 14:02 Patient arrived in ED. as 14:15 Triage completed. iw 14:19 Jaylin Slater, RN is Primary Nurse. oh 14:20 Arm band placed on. iw 14:25 Jefry Dhillon MD is Attending Physician. alondra 14:39 Moose Castillo MD is Private Physician. as 14:39 Sumeet Danielson DO is Private Physician. as 14:56 EKG done, by ED staff, reviewed by Jefry Dhillon MD. em1 15:13 Inserted saline lock: 20 gauge in right antecubital area, using aseptic technique. kg Blood collected. 15:33 Lactate Sent. kg 15:33 Urine Culture Sent. kg 15:37 XRAY Chest (1 view) In Process Unspecified. EDMS 16:50 Bed in low position. Call light in reach. Side rails up X2. kg 18:21 No provider procedures requiring assistance completed. kg 18:21 Patient transferred, IV remains in place. kg Administered Medications: 15:54 Drug: vancoMYCIN 1 grams Route: IVPB; Infused Over: 2 hrs; Site: right antecubital; kg 15:58 Drug: Pepcid (famotidine) 20 mg Route: IVP; Site: right antecubital; kg 17:23 Follow up: Response: No adverse reaction kg 15:59 Drug: Solu-CORTEF (hyrdoCORTISONE) 100 mg Route: IVP; Site: right antecubital; kg 17:22 Follow up: Response: No adverse reaction kg 16:02 Drug: NS 0.9% 1000 ml Route: IV; Rate: 100 ml/hr; Site: right antecubital; kg 16:30 Drug: Tylenol 650 mg Route: PO; kg 17:22 Follow up: Response: No adverse reaction kg 17:32 Drug: Unasyn (ampicillin-sulbactam) 3 grams Route: IVPB; Infused Over: 30 mins; Site: kg right antecubital; Outcome: 16:33 ER care complete, transfer ordered by MD. cantu 18:20 Transferred by ground EMS to [facility], Note: report given to cj Silverio RN 18:20 Condition: stable 18:20 Discharge instructions given to EMS. 19:10 Patient left the ED. oh Signatures: Dispatcher [employer] Jefry Faith MD MD cha Martinez, Amelia as Williams, Irene, Art Dickson RN em1 Maureen Boone RN RN kg Harriott, Oneka, RN RN oh
[2021-04-05] MEDS ORDERED: ONDANSETRON 4 MG/2 ML VIAL ONE (16:45)
[2021-04-05] MEDS ORDERED: AMPICILLIN/SULBACTAM 3GM/VIAL ONE (17:51)
[2021-04-05] MEDS ORDERED: NA CHLORIDE 0.9% 100 ML ONE (17:52)
[2021-04-06 06:06] VITALS: TEMP 99.4
[2021-04-06 06:08] VITALS: BP 108/57; O2SAT 98
--- NOTE | 2021-04-06 16:42 | EKG ---
Test Date: 2021-04-05 Test Time: 14:53:10 Vibrating Screed Operator: EMILIANA MEASUREMENT RESULTS: Intervals: Rate: 119 FL: 178 QRSD: 72 QT: 310 QTc: 436 Mccarr: P: 23 FL: 178 QRS: -61 T: 39 INTERPRETIVE STATEMENTS: Sinus tachycardia Left axis deviation Low voltage QRS Cannot rule out Anteroseptal infarct, age undetermined Abnormal ECG Compared to ECG 01/19/2017 15:28:53 Low QRS voltage now present Sinus bradycardia no longer present Myocardial infarct finding still present Electronically Signed On 04-06-21 16:39:09 CDT by Bryce Art
== END 2021-04-05 19:10 | disposition short-term general hospital (02) ==
LOC: ER 13:57
DX: J18.9 Pneumonia, unspecified organism (principal); L03.114 Cellulitis of left upper limb; L03.124 Acute lymphangitis of left upper limb; I12.0 Hypertensive chronic kidney disease with stage 5 chronic kidney disease or end stage renal disease; N18.6 End stage renal disease; D63.1 Anemia in chronic kidney disease; Z99.2 Dependence on renal dialysis; Z20.822 Contact with and (suspected) exposure to COVID-19
CPT/HCPCS: 93005; 87040 ×2; 85025; 80048; 36415; 83735; 85610; 80076; 83605; 84484; 83880; 71045; 96375; 96374; 99285; U0003; J3370; J7050; J7030; J1720; J0295; J2405